=== PATIENT | female | born 1980 | race Caucasian/White ===

== ENCOUNTER → 2016-07-08 | Outpatient (CLI) | payer BC ==
[2016-07-08 10:36] LABS: BASO % 0.4 %; BASO ABS # 0.02 K/uL (0-0.2); COMPLETE YES; EOS % 2.8 %; HEMATOCRIT 41.8 % (37-47); IG% 0.2 %; LYMPH % 31.9 %; MEAN CELL VOLUME 85.1 fL (80-100); MEAN CORPUSCULAR HEMOGLOBIN 28.1 pg (25-34); MEAN PLATELET VOLUME 10.6 fL (7.4-10.4); MONO % 11.3 %; NEUT % 53.4 %; PLATELET COUNT 183 K/uL (130-400); RED BLOOD COUNT 4.91 M/uL (4.2-5.4); WHITE BLOOD COUNT 5.33 K/uL (4.8-10.8)
[2016-07-08 10:59] LABS: CHOLESTEROL/HDL RATIO 4.1; THYROID STIMULATING HORMONE 1.28 uIu/ml (0.300-4.500)
== END | disposition home or self-care (01) ==
LOC: C.LABBC 07:46
PROVIDERS: ATTEND Family Medicine
DX: E78.5 Hyperlipidemia, unspecified (principal); Z13.0 Encounter for screening for diseases of the blood and blood-forming organs and certain disorders involving the immune mechanism; E04.1 Nontoxic single thyroid nodule; Z13.1 Encounter for screening for diabetes mellitus

== ENCOUNTER → 2016-08-22 | Outpatient (CLI) | payer BC ==
--- NOTE | 2016-08-22 10:49 | DIAGNOSTIC IMAGING REPORT ---
THYROID ULTRASOUND HISTORY: E04.1 Thyroid nodule COMPARISON: Thyroid ultrasound 08/21/2015. FINDINGS: Right lobe: 5.7 x 2.0 x 1.4 cm. There are 3 nodules seen within the right thyroid lobe with the largest in the lower pole measuring 1.6 x 1.0 x 1.3 cm. This nodule is probably solid. This nodule has decreased in size compared to prior study, previous measuring 2.0 x 2.0 x 1.2 cm. There is a 5 mm nodule within the upper pole. There is a solid and cystic 1.2 x 1.2 x 0.6 cm nodule within the lower pole. This has slightly increased in size. However, this does not meet sonographic criteria for biopsy at this time. Left lobe: 4.8 x 1.0 2.0 cm. A 1.1 x 0.5 x 0.7 cm solid and cystic nodule within the interpolar region which has slightly increased in size. This previous measured 6 mm. This does not meet sonographic criteria for biopsy at this time. Isthmus: 2 mm. No nodules. IMPRESSION: 1. Decrease in size in the predominantly solid 1.6 cm nodule within the lower pole of the right thyroid lobe. 2. Additional thyroid nodules have slightly increased in size as described above. However, these do not meet sonographic criteria for biopsy at this time. Electronically signed by: Gen Cortez M.D. 08/22/2016 10:47 AM Dictated Date/Time: 08/22/2016 10:43 AM
== END | disposition home or self-care (01) ==
LOC: C.ULTR 10:14
DX: E04.1 Nontoxic single thyroid nodule (principal)

== ENCOUNTER → 2016-09-27 | Outpatient (CLI) | payer BC | END | disposition home or self-care (01) | LOC: C.PAPS 10:48 | PROVIDERS: ATTEND Obstetrics & Gynecology | DX: Z01.419 Encounter for gynecological examination (general) (routine) without abnormal findings (principal) ==

== ENCOUNTER → 2017-07-21 | Outpatient (CLI) | payer BC | LOC: C.LAB1850 07:39 | PROVIDERS: ATTEND Internal Medicine | DX: E04.1 Nontoxic single thyroid nodule (principal); Z13.220 Encounter for screening for lipoid disorders; Z13.1 Encounter for screening for diabetes mellitus ==

== ENCOUNTER → 2017-08-18 | Outpatient (CLI) | payer BC | END | disposition home or self-care (01) | LOC: C.LAB1850 10:30 | PROVIDERS: ATTEND Internal Medicine Endocrinology, Diabetes & Metabolism | DX: R53.83 Other fatigue (principal) ==